=== PATIENT | male | born 1985 | race Caucasian/White ===

== ENCOUNTER 2017-09-19 02:49 | Emergency (ER) | payer OTHER, SELFPAY ==
[2017-09-19 03:29] LABS: #Basophils 0.1 thou/uL (0.0-0.2); #Eosinphils 0.3 thou/uL (0.0-0.7); #Lymphocytes 2.5 thou/uL (1.20-3.40); #Neutrophils 4.8 thou/uL (1.40-6.50); %Basophils 0.9 % (0.0-1.0); %Eosinophils 3.3 % (0.0-10.0); %Lymphocytes 28.3 % (21.0-51.0); %Monocytes 11.6 % (0.0-10.0); %Neutrophils 55.8 % (42.0-75.0); Hemoglobin 13.8 g/dL (14.0-18.0); Mean Corpuscular HGB CONC 31.8 g/dL (32.0-36.0); Mean Corpuscular Volume 81.6 fL (78.0-98.0); Mean Platelet Volume 9.1 fL (7.4-10.4); Platelet Count 197 thou/uL (130-400); RBC Distribution Width 13.4 % (11.5-14.5); Red Blood Cell (RBC) Count 5.32 mill/uL (4.70-6.10); White Blood Cell (WBC) Count 8.6 thou/uL (4.8-10.8)
[2017-09-19 03:33] LABS: Bilirubin Negative (Negative); Blood, Urine Negative (Negative); Clarity CLOUDY (Clear); Glucose, Urine (Dipstick) Negative (Negative); Leukocyte Negative (Negative); Nitrite Negative (Negative); Protein, Urine (Dipstick) Negative (Neg-Trace); Specific Gravity, Urine 1.017 (1.002-1.036); Urobilinogen 0.2 mg/dL (0.2-1.0)
[2017-09-19 03:42] LABS: ALT (SGPT) 48 U/L (8-55); AST (SGOT) 29 U/L (5-34); Albumin 4.1 g/dL (3.5-5.0); Alkaline Phosphatase 52 U/L (40-150); Anion Gap 13 mmol/L (10-20); BUN (Urea Nitrogen) 13 mg/dL (8.9-20.6); Bilirubin, Total 0.7 mg/dL (0.2-1.2); Calc. Creatinine Clearance 0 mL/min (70-130); Calcium 9.3 mg/dL (7.8-10.44); Carbon Dioxide 25 mmol/L (22-29); Chloride 109 mmol/L (98-107); Estimated GFR-MDRD Greater than 90; Globulin 2.3 g/dL (2.4-3.5); Glucose 98 mg/dL (70-105); Potassium 4.1 mmol/L (3.5-5.1); Protein, Total 6.4 g/dL (6.0-8.3); Sodium 143 mmol/L (136-145)
[2017-09-19] MEDS ORDERED: cefTRIAXone\\ROCEPHIN 250 MG VIAL ONE (04:31)
[2017-09-19] MEDS ORDERED: Azithromycin 250 MG TAB ONE ×2 (04:31→04:32)
[2017-09-19] MEDS ORDERED: Lidocaine 1% PF 5 ML VIAL ONE (04:31)
[2017-09-19] MEDS ORDERED: Ketorolac Tromethamine 30 MG/ML VIAL ONE (05:28)
[2017-09-19] MEDS ORDERED: Ondansetron ODT 4 MG TAB ONE (05:33)
--- NOTE | 2017-09-19 10:59 | ULT ---
PRELIMINARY REPORT/[facility]/EMERGENTY AFTER-HOURS PROCEDURE US Scrotum US Duplex Arterial/Venous of the Testicles, Complete EXAM DATE/TIME: Exam ordered 09/19/2017 4:30 AM CLINICAL HISTORY: 31 years old, male; Pain; Scrotum pain; Patient HX: Left sided scrotal pain x 6 months TECHNIQUE: Real-time ultrasound of the scrotum with color Doppler and image documentation. Real-time duplex ultr asound scan of the arterial and venous flow of the scrotal contents with color Doppler flow and spect ral waveform analysis. COMPARISON: No relevant prior studies available. FINDINGS: Right testicle: RIGHT testicle measures 3.0 x 4.7 x 2.6 cm. Normal arterial and venous waveforms. No torsion. Left testicle: LEFT testicle measures 3.2 x 4.5 x 2.5 cm. Normal arterial and venous waveforms. No to rsion. Epididymides: There is a 2 cm LEFT epididymal cyst or spermatocele. Scrotum: There is a left-sided varicocele. There are mild bilateral hydroceles. IMPRESSION: No testicular torsion on either side. 2 cm LEFT epididymal cyst or spermatocele. Thank you for allowing us to participate in the care of your patient. Dictated and Authenticated by: Nash Gutiérrez MD 09/19/2017 6:19 AM Central Time ([place] & [place]) FINAL REPORT ULTRASOUND TESTICULAR WITH DOPPLER: Date: 09/19/17 HISTORY: Left-sided testicular pain. COMPARISON: None. TECHNIQUE: Real-time Beckham scale with color flow and spectral analysis of the testicles was performed. FINDINGS/IMPRESSION: Findings and impression are concordant with the preliminary report by Cliff. POS: [facility]
[2017-09-22 01:08] LABS: Chlamydia by PCR Not Detected (NotDetected); GC by PCR Not Detected (NotDetected)
== END 2017-09-19 08:21 | disposition home or self-care (01) ==
LOC: EDBD 02:49 → ERS 02:49
DX: N50.3 Cyst of epididymis (principal); F17.210 Nicotine dependence, cigarettes, uncomplicated
CPT/HCPCS: 36415; 76870; 80053; 81003; 82274; 85025; 87491; 87591; 93976; 96372; 96374; J0696; J1885; J2001; Q0162

== ENCOUNTER 2017-10-09 23:52 | Emergency (ER) | payer OTHER, SELFPAY ==
[2017-10-10] MEDS ORDERED: Ketorolac Tromethamine 60 MG/2 ML VIAL ONE (00:51)
[2017-10-10] MEDS ORDERED: Acetaminophen 500 MG TAB ONE (02:59)
--- NOTE | 2017-10-10 08:51 | ULT ---
PRELIMINARY REPORT/[facility]/EMERGENTY AFTER-HOURS PROCEDURE US Scrotum CLINICAL HISTORY: 31 years old, male; Pain and signs and symptoms; Swelling, testicles or scrotum; Scrotum pain; Patien t HX: Pain and swelling worse on left; Additional info: Us teste on 09/19/17 - left epi head cyst with left varicocele and mild hydrocele bilat. TECHNIQUE: Real-time ultrasound of the scrotum with color Doppler and image documentation. COMPARISON: US - Testis 2017-09-19 04:30 FINDINGS: Scrotal ultrasound was performed. Duplex ultrasound scan with color Doppler flow and spectral wavefor m analysis was also performed for evaluation of testicular blood flow and to rule out torsion. Right testicle: No acute findings. No mass. Normal blood flow. No evidence of torsion. Left testicle: No acute findings. No mass. Normal blood flow. No evidence of torsion. Epididymides: Left epididymal cyst measuring up to 2cm. Unremarkable right epididymis. Scrotum: Bilateral varicoceles. Bilateral mild hydroceles. IMPRESSION: No acute findings. No testicular mass or torsion. Bilateral varicocele and mild hydrocele. Left epidi dymal cyst. Thank you for allowing us to participate in the care of your patient. Dictated and Authenticated by: Wilton Evans MD 10/10/2017 2:34 AM Central Time ([place] & [place]) FINAL REPORT TESTICULAR ULTRASOUND WITH DOPPLER: Date: 10/10/17 FINDINGS/IMPRESSION: I agree with the preliminary report given by Cliff. POS: [facility]
== END 2017-10-10 03:03 ==
LOC: ERS 23:52
DX: N50.3 Cyst of epididymis (principal); I86.1 Scrotal varices; N43.3 Hydrocele, unspecified; F17.210 Nicotine dependence, cigarettes, uncomplicated
CPT/HCPCS: 76870; 93976; 96372; J1885